=== PATIENT | male | born 1995 | race Caucasian/White ===

== ENCOUNTER 2017-07-09 00:26 | Emergency (ER) | payer OTHER ==
[2017-07-09] MEDS: methylPREDNISolone INJ 125 MG/2 ML VIAL (J2930) IM (01:35)
== END 2017-07-09 02:00 | disposition home or self-care (01) ==
LOC: M ED 00:26
DX: L23.7 Allergic contact dermatitis due to plants, except food (principal)
CPT/HCPCS: J2930